=== PATIENT | female | born 1930 | race Caucasian/White ===

== ENCOUNTER 2017-06-20 12:25 | Emergency (ER) | payer OTHER ==
[2017-06-20 15:38] LABS: CALCIUM 8.3 mg/dL (8.5-10.1); CHLORIDE SERUM 98 mmol/L (98-107); CREATININE SERUM 0.6 mg/dL (0.6-1.0); GLUCOSE SERUM 93 mg/dL (74-106); SODIUM SERUM 133 mmol/L (136-145)
[2017-06-20 15:40] LABS: AMPHETAMINE QUAL UR NONE DETECTED (NEG <=1000)
[2017-06-20 15:44] LABS: ALBUMIN 3.7 g/dL (3.4-5.0); ALKALINE PHOSPHATASE 80 U/L (46-116); ALT/SGPT 18 U/L (14-59); AST/SGOT 17 U/L (15-37); BILIRUBIN TOTAL 0.4 mg/dL (0.20-1.00)
[2017-06-20 15:46] LABS: TOTAL PROTEIN, SERUM 8.8 g/dL (6.4-8.2)
[2017-06-20 15:53] LABS: PLATELET COUNT 83 x10^3mcL (130-400); RED CELL DISTRIBUTION WIDTH 21.2 % (11.5-14.5)
[2017-06-20 16:09] LABS: CK-MB 0.8 ng/mL (0-3.6)
[2017-06-20 17:24] LABS: BAND NEUTROPHIL 0 % (0-10); BASOPHIL 1 % (0-2); MONOCYTE 9 % (0-7); SEGMENTED NEUTROPHILS 53 % (37-75); rbc morphology (normal/abnorm) ABNORMAL (NORMAL)
[2017-06-20 17:32] VITALS: BP 114/67
[2017-06-20 19:06] LABS: MAGNESIUM 2.2 mg/dL (1.8-2.4); PHOSPHOROUS 3.4 mg/dL (2.5-4.9)
[2017-06-20 19:08] LABS: CHOLESTEROL/HDL RATIO 2.1
[2017-06-20 19:13] LABS: T3 TOTAL 0.79 ng/mL
[2017-06-20 19:16] LABS: FREE T4 1.15 ng/dL (0.76-1.46); T4(THYROXINE) 8.7 ug/dL (4.7-13.3)
== END 2017-06-20 17:32 | disposition left against medical advice (07) ==
LOC: ED 12:25 → DU 16:55 → ED 16:55 → DU 17:33
PROVIDERS: Emergency Medicine; Family Medicine
DX: R42 Dizziness and giddiness (principal); R20.0 Anesthesia of skin; R51 Headache; Z88.0 Allergy status to penicillin; M19.90 Unspecified osteoarthritis, unspecified site
CPT/HCPCS: 36415; 83880; 84439; G0480; Q0092

== ENCOUNTER 2018-04-14 15:21 | Emergency (ER) | payer OTHER ==
[~2018-04-14] VITALS: Ht 152.4 cm; Wt 61.2 kg
[2018-04-14 15:27] VITALS: Ht 152.4 cm; Wt 61.2 kg
[2018-04-14 16:07] LABS: PLATELET COUNT 86 x10^3mcL (130-400)
[2018-04-14 16:12] LABS: CALCIUM 8.1 mg/dL (8.5-10.1); CARBON DIOXIDE 30.1 mmol/L (21-32); CHLORIDE SERUM 101 mmol/L (98-107); CREATININE SERUM 0.7 mg/dL (0.6-1.0); GLUCOSE SERUM 160 mg/dL (74-106); POTASSIUM SERUM 4.2 mmol/L (3.5-5.1); SODIUM SERUM 133 mmol/L (136-145)
[2018-04-14 16:18] LABS: BAND NEUTROPHIL 0 % (0-10); BASOPHIL 0 % (0-2); MONOCYTE 18 % (0-7); SEGMENTED NEUTROPHILS 46 % (37-75)
[2018-04-14 16:25] LABS: rbc morphology (normal/abnorm) ABNORMAL (NORMAL)
[2018-04-14 16:28] LABS: acanthocyte (spur cell) 1+
[2018-04-14 16:29] LABS: PLATELET MORPHOLOGY GIANT PLATELET SEEN
[2018-04-14] MEDS ORDERED: LOSARTAN POTASS25 M1 PO (17:27)
[2018-04-14] MEDS ORDERED: PROMACTA25 MG PO (17:27)
[2018-04-14 18:40] VITALS: BP 119/66
== END 2018-04-14 18:40 | disposition left against medical advice (07) ==
LOC: ED 15:21
PROVIDERS: Emergency Medicine
DX: D61.818 Other pancytopenia (principal); R07.89 Other chest pain
CPT/HCPCS: 36415; 83880; J3010; J7030; Q0092; Q9967